=== PATIENT | female | born 1980 | race Caucasian/White ===

== ENCOUNTER → 2017-02-18 | Outpatient (CLI) | payer OTHER ==
--- NOTE | 2017-02-18 13:03 | MM ---
Reason for exam: screening (asymptomatic). Baseline mammogram. History: Patient history of other cancer. Physical Findings: Nurse did not find any significant physical abnormalities on exam. MG Screening Mammo w CAD Bilateral CC and MLO view(s) were taken. The breast tissue is heterogeneously dense. This may lower the sensitivity of mammography. There is no discrete abnormality. These results were verbally communicated with the patient and result sheet given to the patient on 02/18/17. ASSESSMENT: Negative, BI-RAD 1 RECOMMENDATION: Routine screening mammogram of both breasts at age 42. (unless clinical indication to start sooner)
== END | disposition home or self-care (01) ==
LOC: RADMAMWWP 10:42
PROVIDERS: ATTEND Obstetrics & Gynecology
DX: Z12.31 Encounter for screening mammogram for malignant neoplasm of breast (principal)

== ENCOUNTER → 2017-07-30 | Outpatient (CLI) | payer OTHER ==
--- NOTE | 2017-07-30 09:47 | US ---
EXAMINATION TYPE: US thyroid st tissue head/neck DATE OF EXAM: 07/30/2017 COMPARISON: US CLINICAL HISTORY: E04.2 Nontoxic multinodular goiter. Pt states F/U, no complaints at this time GLAND SIZE: Right Lobe: Surgically absent Left Lobe: 4.8 x 0.8 x 1.5 cm Overall Parenchyma: homogeneous Isthmus Thickness: 0.2 cm Bilateral neck scanned, no evidence of lymphadenopathy. Normal left thyroid, unchanged from previous IMPRESSION: 1. Surgical absence of the right thyroid with no residual sonographic tissue. 2. Unremarkable left lobe of the thyroid and thyroid isthmus, unchanged from the prior. 3. No visualized adenopathy.
== END | disposition home or self-care (01) ==
LOC: RADUSWWP 08:45
PROVIDERS: ATTEND Internal Medicine Endocrinology, Diabetes & Metabolism
DX: E04.2 Nontoxic multinodular goiter (principal); Z90.89 Acquired absence of other organs
CPT/HCPCS: 76536

== ENCOUNTER → 2017-09-03 | Outpatient (CLI) | payer OTHER | END | disposition home or self-care (01) | LOC: LABWHC1 12:47 | PROVIDERS: ATTEND Internal Medicine Endocrinology, Diabetes & Metabolism | DX: E03.8 Other specified hypothyroidism (principal); E55.9 Vitamin D deficiency, unspecified | CPT/HCPCS: 36415; 82306; 84439; 84443 ==

== ENCOUNTER 2018-05-02 19:58 | Emergency (ER) | payer OTHER ==
[2018-05-02] MEDS ORDERED: SODIUM CHLORIDE 0.9% 1,000 ML IV STA (20:02)
--- NOTE | 2018-05-02 20:06 | ED ---
Syncope HPI - General Stated Complaint: Syncope Time Seen by Provider: 05/02/18 20:00 Source: patient, EMS, RN notes reviewed Mode of arrival: EMS - History of Present Illness Initial Comments: This is a 37-year-old female who states she was standing for quite a period of time when she passed out. She felt lightheaded and dizzy. Had a glucose of 78 initially. She started feeling better but then had a second episode about 5 minutes later. She apparently was out from the original episode about 1 minute. She did not pass out on the second episode. No palpitations fevers chills nausea vomiting sweats she does have a history of heart or thyroid being removed he does not recall which side. She had an episode similar to this about 10 years ago. She states she has eaten and drank fluids jo JOLLY Complaint: loss of consciousness - Related Data Home Medications Medication Instructions Recorded Confirmed Citalopram Hydrobromide [CeleXA] 1 tab PO DAILY 05/02/18 05/02/18 Levothyroxine Sodium [Synthroid] 1 tab PO DAILY 05/02/18 05/02/18 Allergies Allergy/AdvReac Type Severity Reaction Status Date / Time No Known Allergies Allergy Verified 05/02/18 20:03 Review of Systems ROS Statement: Those systems with pertinent positive or pertinent negative responses have been documented in the HPI. ROS Other: All systems not noted in ROS Statement are negative. General Exam - General Exam Comments Initial Comments: This a well-developed well-nourished awake alert oriented 3 female General appearance: alert, in no apparent distress Head exam: Present: atraumatic, normocephalic, normal inspection Eye exam: Present: normal appearance, PERRL, EOMI. Absent: scleral icterus, conjunctival injection, periorbital swelling ENT exam: Present: mucous membranes dry Neck exam: Present: normal inspection. Absent: tenderness, meningismus, lymphadenopathy Respiratory exam: Present: normal lung sounds bilaterally. Absent: respiratory distress, wheezes, rales, rhonchi, stridor Cardiovascular Exam: Present: regular rate, normal rhythm, normal heart sounds. Absent: systolic murmur, diastolic murmur, rubs, gallop, clicks GI/Abdominal exam: Present: soft, normal bowel sounds. Absent: distended, tenderness, guarding, rebound, rigid Extremities exam: Present: normal inspection, full ROM, normal capillary refill. Absent: tenderness, pedal edema, joint swelling, calf tenderness Back exam: Present: normal inspection Neurological exam: Present: alert, oriented X3, CN II-XII intact Psychiatric exam: Present: normal affect, normal mood Skin exam: Present: warm, dry, intact, normal color. Absent: rash Course Vital Signs 05/02/18 20:06 Temperature 98.3 F Pulse Rate 70 Respiratory 16 Rate Blood Pressure 105/63 O2 Sat by Pulse 100 Oximetry EKG Findings - EKG Results: EKG: interpreted by MISTY, sinus rhythm (Sinus rhythm a 65. Interval 150 QRS duration 90 QT since QTC of 426/443 nonspecific inferior changes) Medical Decision Making - Medical Decision Making The patient has been awake and alert with no distress since arrival. She is a multiple times in the emergency department without difficulty. Patient will be discharged the presentation is consistent with a vasovagal episode. - Lab Data Result diagrams: 05/02/18 20:05 05/02/18 20:05 Lab Results 05/02/18 05/02/18 05/02/18 Range/Units 20:05 20:05 20:05 WBC 9.8 (3.8-10.6) k/uL RBC 3.98 (3.80-5.40) m/uL Hgb 11.1 L (11.4-16.0) gm/dL Hct 34.0 (34.0-46.0) % MCV 85.5 (80.0-100.0) fL MCH 27.8 (25.0-35.0) pg MCHC 32.5 (31.0-37.0) g/dL RDW 14.5 (11.5-15.5) % Plt Count 266 (150-450) k/uL Neutrophils % 78 % Lymphocytes % 16 % Monocytes % 5 % Eosinophils % 1 % Basophils % 0 % Neutrophils # 7.6 (1.3-7.7) k/uL Lymphocytes # 1.5 (1.0-4.8) k/uL Monocytes # 0.5 (0-1.0) k/uL Eosinophils # 0.1 (0-0.7) k/uL Basophils # 0.0 (0-0.2) k/uL PT (9.0-12.0) sec INR (<1.2) APTT (22.0-30.0) sec D-Dimer (<0.60) mg/L FEU Sodium 140 (137-145) mmol/L Potassium 4.0 (3.5-5.1) mmol/L Chloride 108 H (98-107) mmol/L Carbon Dioxide 22 (22-30) mmol/L Anion Gap 10 mmol/L BUN 13 (7-17) mg/dL Creatinine 0.70 (0.52-1.04) mg/dL Est GFR (CKD-EPI)AfAm >90 (>60 ml/min/1.73 sqM) Est GFR (CKD-EPI)NonAf >90 (>60 ml/min/1.73 sqM) Glucose 90 (74-99) mg/dL POC Glucose (mg/dL) (75-99) mg/dL POC Glu Power Plant Technician ID Calcium 8.2 L (8.4-10.2) mg/dL Magnesium 1.9 (1.6-2.3) mg/dL Total Bilirubin <0.1 L (0.2-1.3) mg/dL AST 23 (14-36) U/L ALT 33 (9-52) U/L Alkaline Phosphatase 71 (38-126) U/L Total Creatine Kinase 57 (30-135) U/L CK-MB (CK-2) <0.2 (0.0-2.4) ng/mL CK-MB (CK-2) Rel Index Troponin I <0.012 (0.000-0.034) ng/mL Total Protein 5.8 L (6.3-8.2) g/dL Albumin 3.4 L (3.5-5.0) g/dL Urine Color Urine Appearance (Clear) Urine pH (5.0-8.0) Ur Specific Carey (1.001-1.035) Urine Protein (Negative) Urine Glucose (UA) (Negative) Urine Ketones (Negative) Urine Blood (Negative) Urine Nitrite (Negative) Urine Bilirubin (Negative) Urine Urobilinogen (<2.0) mg/dL Ur Leukocyte Esterase (Negative) Urine RBC (0-5) /hpf Urine WBC (0-5) /hpf Ur Squamous Epith Cells (0-4) /hpf Urine Bacteria (None) /hpf Urine Mucus (None) /hpf 05/02/18 05/02/18 05/02/18 Range/Units 20:05 20:09 20:31 WBC (3.8-10.6) k/uL RBC (3.80-5.40) m/uL Hgb (11.4-16.0) gm/dL Hct (34.0-46.0) % MCV (80.0-100.0) fL MCH (25.0-35.0) pg MCHC (31.0-37.0) g/dL RDW (11.5-15.5) % Plt Count (150-450) k/uL Neutrophils % % Lymphocytes % % Monocytes % % Eosinophils % % Basophils % % Neutrophils # (1.3-7.7) k/uL Lymphocytes # (1.0-4.8) k/uL Monocytes # (0-1.0) k/uL Eosinophils # (0-0.7) k/uL Basophils # (0-0.2) k/uL PT 10.9 (9.0-12.0) sec INR 1.1 (<1.2) APTT 20.9 L (22.0-30.0) sec D-Dimer 0.29 (<0.60) mg/L FEU Sodium (137-145) mmol/L Potassium (3.5-5.1) mmol/L Chloride (98-107) mmol/L Carbon Dioxide (22-30) mmol/L Anion Gap mmol/L BUN (7-17) mg/dL Creatinine (0.52-1.04) mg/dL Est GFR (CKD-EPI)AfAm (>60 ml/min/1.73 sqM) Est GFR (CKD-EPI)NonAf (>60 ml/min/1.73 sqM) Glucose (74-99) mg/dL POC Glucose (mg/dL) 92 (75-99) mg/dL POC Glu Power Plant Technician ID [place], Any Calcium (8.4-10.2) mg/dL Magnesium (1.6-2.3) mg/dL Total Bilirubin (0.2-1.3) mg/dL AST (14-36) U/L ALT (9-52) U/L Alkaline Phosphatase (38-126) U/L Total Creatine Kinase (30-135) U/L CK-MB (CK-2) (0.0-2.4) ng/mL CK-MB (CK-2) Rel Index Troponin I (0.000-0.034) ng/mL Total Protein (6.3-8.2) g/dL Albumin (3.5-5.0) g/dL Urine Color Yellow Urine Appearance Clear (Clear) Urine pH 6.0 (5.0-8.0) Ur Specific Carey 1.010 (1.001-1.035) Urine Protein Negative (Negative) Urine Glucose (UA) Negative (Negative) Urine Ketones Negative (Negative) Urine Blood Trace H (Negative) Urine Nitrite Negative (Negative) Urine Bilirubin Negative (Negative) Urine Urobilinogen <2.0 (<2.0) mg/dL Ur Leukocyte Esterase Negative (Negative) Urine RBC 1 (0-5) /hpf Urine WBC 2 (0-5) /hpf Ur Squamous Epith Cells 3 (0-4) /hpf Urine Bacteria Rare H (None) /hpf Urine Mucus Few H (None) /hpf - Radiology Data Radiology results: report reviewed (I did review the imaging and reports no acute findings.), image reviewed Disposition Clinical Impression: Vasovagal syncope Disposition: HOME SELF-CARE Condition: Good Instructions: Syncope (ED) Is patient prescribed a controlled substance at d/c from ED?: No Referrals: Zelda Dutton MD [Primary Care Provider] - 1-2 days
[2018-05-02 20:11] LABS: Glucose,Whole Blood 92 mg/dL (75-99)
[2018-05-02 20:16] LABS: Basophils % (A) 0 %; Eosinophils # (A) 0.1 k/uL (0-0.7); Eosinophils % (A) 1 %; HGB 11.1 gm/dL (11.4-16.0); Lymphocytes # (A) 1.5 k/uL (1.0-4.8); Lymphocytes % (A) 16 %; MCH 27.8 pg (25.0-35.0); MCHC 32.5 g/dL (31.0-37.0); MCV 85.5 fL (80.0-100.0); Mean Platelet Volume 7.9; Monocytes # (A) 0.5 k/uL (0-1.0); Monocytes % (A) 5 %; Neutrophils # (A) 7.6 k/uL (1.3-7.7); Neutrophils % (A) 78 %; Platelet Count 266 k/uL (150-450); RBC 3.98 m/uL (3.80-5.40); RDW 14.5 % (11.5-15.5); WBC 9.8 k/uL (3.8-10.6)
--- NOTE | 2018-05-02 20:22 | XR ---
EXAMINATION: XR chest 2V DATE AND TIME: 05/02/2018 8:17 PM ORDERING PROVIDER: Abrahan Price MD CLINICAL INDICATION: syncope TECHNIQUE: PA and lateral COMPARISON: 12/16/2012 DESCRIPTION: The lungs are clear. The pleural spaces are negative. The cardiac silhouette is not enlarged. The mediastinal and pleural silhouettes are unremarkable. The skeletal structures are intact without focal findings. The soft tissues are unremarkable. IMPRESSION: NO ACUTE PROCESS.
[2018-05-02 20:36] LABS: D-Dimer 0.29 mg/L FEU (<0.60); INR 1.1 (<1.2); Partial Thromboplastin Time 20.9 sec (22.0-30.0); Prothrombin Time 10.9 sec (9.0-12.0)
[2018-05-02 20:43] LABS: ALT 33 U/L (9-52); AST 23 U/L (14-36); Albumin 3.4 g/dL (3.5-5.0); Alkaline Phosphatase 71 U/L (38-126); Anion Gap 10 mmol/L; Blood Urea Nitrogen 13 mg/dL (7-17); Calcium 8.2 mg/dL (8.4-10.2); Carbon Dioxide 22 mmol/L (22-30); Chloride 108 mmol/L (98-107); Glucose 90 mg/dL (74-99); Magnesium 1.9 mg/dL (1.6-2.3); Sodium 140 mmol/L (137-145); Total Bilirubin <0.1 mg/dL (0.2-1.3); Total Protein 5.8 g/dL (6.3-8.2)
[2018-05-02 20:46] LABS: Creatine Kinase 57 U/L (30-135)
[2018-05-02 20:48] LABS: Appearance,Urine Clear (Clear); Bacteria,Urine Rare /hpf; Bilirubin,Urine Negative (Negative); Blood,Urine Trace (Negative); Color,Urine Yellow; Glucose,Urine (UA) Negative (Negative); Ketones,Urine Negative (Negative); Leukocyte Esterase,Urine Negative (Negative); Mucus,Urine Few /hpf; Nitrite,Urine Negative (Negative); Protein,Urine Negative (Negative); RBC,Urine 1 /hpf (0-5); Squamous Epithelial Cell,Urine 3 /hpf (0-4); Urobilinogen,Urine <2.0 mg/dL (<2.0); WBC,Urine 2 /hpf (0-5)
[2018-05-02 20:59] LABS: Creatine Kinase MB <0.2 ng/mL (0.0-2.4); Troponin I <0.012 ng/mL (0.000-0.034)
[2018-05-02 22:09] VITALS: BP 106/67; PULSE 87; RESP 18; TEMP 97.4
== END 2018-05-02 22:07 | disposition home or self-care (01) ==
LOC: EC 19:58
DX: R55 Syncope and collapse (principal); Z79.899 Other long term (current) drug therapy
CPT/HCPCS: 36415; 71046; 80053; 81001; 82550; 82553; 83735; 84484; 85025; 85379; 85610; 85730; 93005; 96360; 96361; 99285

== ENCOUNTER → 2018-05-11 | Outpatient (CLI) | payer OTHER ==
[2018-05-11 10:33] LABS: Basophils % (A) 0 %; Eosinophils # (A) 0.1 k/uL (0-0.7); Eosinophils % (A) 2 %; HCT 38.7 % (34.0-46.0); HGB 12.8 gm/dL (11.4-16.0); Lymphocytes # (A) 1.7 k/uL (1.0-4.8); Lymphocytes % (A) 25 %; MCH 28.4 pg (25.0-35.0); MCHC 33.2 g/dL (31.0-37.0); MCV 85.5 fL (80.0-100.0); Mean Platelet Volume 8.3; Monocytes # (A) 0.4 k/uL (0-1.0); Monocytes % (A) 5 %; Neutrophils # (A) 4.4 k/uL (1.3-7.7); Neutrophils % (A) 65 %; Platelet Count 296 k/uL (150-450); RBC 4.53 m/uL (3.80-5.40); RDW 14.2 % (11.5-15.5); WBC 6.7 k/uL (3.8-10.6)
== END | disposition home or self-care (01) ==
LOC: LABPAT 07:43
PROVIDERS: ATTEND Obstetrics & Gynecology
DX: Z01.812 Encounter for preprocedural laboratory examination (principal); N92.0 Excessive and frequent menstruation with regular cycle
CPT/HCPCS: 36415; 85025

== ENCOUNTER 2018-05-12 07:21 | Day surgery (SDC) | payer OTHER ==
[2018-05-11 08:37] VITALS: BMI 20.9
--- NOTE | 2018-05-11 09:03 | HP ---
HISTORY AND PHYSICAL This is a 37-year-old white female, 2, para 2-0-0-2, who presents with a history of menorrhagia and is requesting NovaSure endometrial ablation. Menses are quite long, occurring every 28 to 30 days, but lasting for a full 7 days, heavy with clots. She has had a tubal ligation. REVIEW OF SYSTEMS: Review of systems is otherwise negative. PAST MEDICAL HISTORY: Past medical history is significant for asthma. PAST SURGICAL HISTORY: x2, partial thyroidectomy, tubal ligation. CURRENT MEDICATIONS: 1. Levothyroxine 100 mcg once daily. 2. Vitamin C daily. 3. Zyrtec 10 mg pills daily as needed. ALLERGIES: None known. FAMILY HISTORY: Significant for diabetes in her paternal grandfather. REPRODUCTIVE HISTORY: Reproductive history is significant for 2 male deliveries, both via , second one including tubal ligation. SOCIAL HISTORY: Social history is significant for tobacco, smoking daily. The patient is employed at the [employer]. She is single. PHYSICAL EXAMINATION: On exam, this is a pleasant white female, 5 feet, 5.25 inches, 134 pounds, BMI 22, blood pressure 108/72, afebrile. The general physical exam is within normal limits. HEENT reveals no thyromegaly, no cervical lymphadenopathy. Chest is clear to auscultation in all enriquez anteriorly and posteriorly. Chest is otherwise negative. Cardiac exam reveals regular rate and rhythm with no murmur, click, or rub. Breasts are bilaterally symmetric with no skin dimpling, nipple discharge, axillary adenopathy or discernible lesions or masses. Abdomen is soft, nontender, active bowel sounds, no organomegaly. Extremities revealed no edema, good peripheral pulses, good range of motion. On pelvic exam, cervix appears multiparous, Pap smear is up to date and within normal limits. Uterus is small, anteverted, anteflexed, smooth, mobile. Adnexa are negative bilaterally. Skin exam reveals otherwise no rashes, no lesions. No areas of discoloration. Mental status is oriented x3, intact judgment and insight, normal mood and appropriate affect. IMPRESSION: Menorrhagia and dysmenorrhea, status post endometrial biopsy with negative findings, wishing NovaSure endometrial ablation. PLAN: I have reviewed the risks, benefits, and alternatives of this outpatient procedure. The patient understands the risks of bleeding, infection, perforation or damage to bowel, bladder, ureters, blood vessels or indeed any organs. She understands the risks of anesthesia to include aspiration, nerve damage, or even . All questions answered. The informational pamphlet on this procedure has been given to the patient and she has reviewed this in detail. MMODL / IJN: [id number] /
[~2018-05-12 07:21] MED LIST: HYDROmorphone 0.5 MG/0.5 ML SYRINGE IVP PRN; ONDANSETRON 4 MG/2 ML VIAL IVP PRN; Pre Op ABX Message 1 EACH MISC MISCELLANE ONE; fentaNYL (PF) 50 MCG/ML 2 ML AMP IV PRN
[2018-05-12 07:40] VITALS: RESP 16
[2018-05-12] MEDS ORDERED: LIDOCAINE 1% 20 ML VIAL (10MG/ML) FOR IV START INTRADERMA ONE (08:12)
[2018-05-12] MEDS ORDERED: DEXAMETHASONE SOD PHOSPHATE 10 MG/ML 1 ML VIAL IV ONE (08:16)
[2018-05-12] MEDS ORDERED: ONDANSETRON 4 MG/2 ML VIAL IVP ONE (08:16)
[2018-05-12] MEDS: LACTATED RINGERS 1,000 ML IV SCH ×2 (08:17→09:16)
[2018-05-12] MEDS ORDERED: LIDOCAINE 1% INJ 10MG/ML (20 ML MDV) ONE (09:19)
[2018-05-12] MEDS ORDERED: KETOROLAC 30 MG/ML 1 ML VIAL ONE (09:19)
[2018-05-12] MEDS ORDERED: fentaNYL (PF) 50 MCG/ML 2 ML AMP ONE (09:19)
[2018-05-12] MEDS ORDERED: MIDAZOLAM 2 MG/2 ML VIAL ONE (09:19)
[2018-05-12] MEDS ORDERED: PROPOFOL 10 MG/ML 20 ML VIAL IV ONE (09:19)
--- NOTE | 2018-05-12 09:45 | P.OP ---
Date of Procedure: 05/12/18 Preoperative Diagnosis: Menorrhagia Postoperative Diagnosis: Same Procedure(s) Performed: Hysteroscopy, NovaSure ablation Anesthesia: MARCIN Surgeon: Mercedes Leavitt Farm Reporter #1: Stated None Estimated Blood Loss (ml): 2 IV fluids (ml): 400 Urine output (ml): 200 Pathology: none sent Condition: stable Disposition: PACU Description of Procedure: Patient is brought to the [facility] and suite where a general anesthetic is administered without difficulty. She's placed in the dorsal lithotomy position. The cervix, vagina, perineal areas are all prepped and draped in the usual sterile fashion. The appropriate timeout is performed to assure proper patient and procedural identification. Urine hCG is negative. Antibiotics are not deemed appropriate. The bladder is drained for approximately 200 mL of clear yellow urine. Weighted speculum was placed into the vagina. Anterior lip of the cervix is grasped with a double-tooth tenaculum. Examination under anesthesia reveals a small mobile anteverted uterus, negative adnexa bilaterally. Uterus sounds to a depth of 10 cm. The cervix is then gently and systematically dilated using Hanks dilators. The hysteroscope was placed and fluid is infused. The cavity is distended and inspected. No obvious polyps, fibroids, defects, or anomalies are appreciated. Hysteroscope was removed. The NovaSure wand is then placed into the cavity and seated properly. The uterine length of 6.5 cm, width of 4.3 cm is calibrated. Machine is properly enabled. For 61 seconds with a power of 154 W. the procedure is carried out. When it is completed, the wand is collapsed and removed. Hysteroscope was then placed and the cavity is noted to be uniformly blanched. Double-tooth tenaculum was removed. Cervix is clean and dry. All sponge needle and enhancement counts are correct at the end of the procedure. Patient is brought back to the recovery room in stable condition with blood pressure 90/44, pulse 54, 100% O2 saturation. Toradol is given prior to leaving the operative suite. Patient will follow-up with me in the office in 2 weeks.
[2018-05-12 09:59] VITALS: TEMP 97.7
[2018-05-12 11:53] VITALS: BP 103/66; PULSE 55
== END 2018-05-12 12:00 | disposition home or self-care (01) ==
LOC: OR 07:21
PROVIDERS: ATTEND Obstetrics & Gynecology
DX: N92.0 Excessive and frequent menstruation with regular cycle (principal); N94.6 Dysmenorrhea, unspecified; J45.909 Unspecified asthma, uncomplicated; E89.0 Postprocedural hypothyroidism; F17.200 Nicotine dependence, unspecified, uncomplicated; Z79.890 Hormone replacement therapy; Z79.899 Other long term (current) drug therapy; Z98.51 Tubal ligation status; Z83.3 Family history of diabetes mellitus
CPT/HCPCS: 58563; J2250; J1100; J2405; J2001; J3010; J1885; J2704

== ENCOUNTER → 2019-07-22 | Outpatient (CLI) | payer OTHER ==
--- NOTE | 2019-07-22 17:10 | XR ---
Right hand HISTORY: Lump over third metacarpal phalangeal joint, pain 3 views of the right hand Bone mineralization, joint spaces and alignment are maintained. No radiopaque foreign body. There is soft tissue swelling. IMPRESSION: Soft tissue swelling.
== END | disposition home or self-care (01) ==
LOC: RADXRYALE 15:09
PROVIDERS: ATTEND Internal Medicine
DX: M79.89 Other specified soft tissue disorders (principal)

== ENCOUNTER → 2021-09-19 | Outpatient (CLI) | payer OTHER ==
--- NOTE | 2021-09-21 12:06 | MM ---
Reason for exam: screening (asymptomatic). Last mammogram was performed 4 years and 7 months ago. History: Patient history of other cancer. Physical Findings: A clinical breast exam by your physician is recommended on an annual basis and results should be correlated with mammographic findings. MG 3D Screening Mammo W/Cad Bilateral CC and MLO view(s) were taken. Prior study comparison: February 18, 2017, bilateral MG screening mammo w CAD. There are scattered fibroglandular densities. No significant changes when compared with prior studies. ASSESSMENT: Negative, BI-RAD 1 RECOMMENDATION: Routine screening mammogram of both breasts at age 42.
== END | disposition home or self-care (01) ==
LOC: RADMAMWWP 16:34
PROVIDERS: ATTEND Obstetrics & Gynecology
DX: Z12.31 Encounter for screening mammogram for malignant neoplasm of breast (principal)
CPT/HCPCS: 77063; 77067

== ENCOUNTER → 2022-09-30 | Outpatient (CLI) | payer OTHER ==
--- NOTE | 2022-10-01 10:44 | MM ---
Reason for Exam: Screening (asymptomatic). Last screening mammogram was performed 12 month(s) ago. Patient History: Menarche at age 16. First Full-Term at age 29. Patient used Hormonal Contraceptives for 10 years. Last menstrual period: Risk Values: Ally 5 year model risk: 0.5%. NCI Lifetime model risk: 10.2%. Prior Study Comparison: 02/18/2017 Bilateral Screening Mammogram, [facility]. 09/19/2021 Bilateral Screening Mammogram, [facility]. Tissue Density: There are scattered fibroglandular densities. Findings: Analyzed By CAD. There is no suspicious group of microcalcifications or new suspicious mass in either breast. Overall Assessment: Negative, BI-RAD 1 Management: Screening Mammogram of both breasts in 1 year. A clinical breast exam by your physician is recommended on an annual basis and results should be correlated with mammographic findings. Electronically signed and approved by: Desmond Ronquillo M.D.
== END | disposition home or self-care (01) ==
LOC: RADMAMWWP 13:57
PROVIDERS: ATTEND Obstetrics & Gynecology
DX: Z12.31 Encounter for screening mammogram for malignant neoplasm of breast (principal)
CPT/HCPCS: 77067

== ENCOUNTER → 2024-06-01 | Outpatient (CLI) | payer OTHER ==
--- NOTE | 2024-06-04 07:45 | MM ---
Reason for Exam: Screening (asymptomatic). Last mammogram was performed 1 year(s) and 9 month(s) ago. Patient History: Menarche at age 16. First Full-Term at age 29. Patient used Hormonal Contraceptives for 10 years. Risk Values: Ally 5 year model risk: 0.6%. NCI Lifetime model risk: 10.1%. Prior Study Comparison: 02/18/2017 Bilateral Screening Mammogram, [facility]. 09/19/2021 Bilateral Screening Mammogram, [facility]. 09/30/2022 Bilateral MG screening mammo w CAD, [facility]. Tissue Density: The breasts are heterogeneously dense, which may obscure small masses. Findings: Analyzed By CAD. There is no suspicious group of microcalcifications or new suspicious mass in either breast. Benign calcifications right breast. Overall Assessment: Benign, BI-RAD 2 Management: Screening Mammogram of both breasts in 1 year. . Patient should continue monthly self-breast exams. A clinical breast exam by your physician is recommended on an annual basis. This exam should not preclude additional follow-up of suspicious palpable abnormalities. Note on Ally scores and lifetime risk: 1. A Ally score greater than 3% is considered moderate risk. If this is the case, consider specialist referral to assess eligibility for a risk reducing agent. 2. If overall lifetime risk for the development of breast cancer is 20% or higher, the patient may qualify for future screening with alternating mammogram and breast MRI. Electronically signed and approved by: Lio Conde M.D. Radiologis
== END | disposition home or self-care (01) ==
LOC: RADMAMWWP 06:59
PROVIDERS: ATTEND Obstetrics & Gynecology
DX: Z12.31 Encounter for screening mammogram for malignant neoplasm of breast (principal)
CPT/HCPCS: 77063; 77067

== ENCOUNTER → 2024-09-01 | Outpatient (CLI) | payer OTHER ==
[2024-09-01 11:03] LABS: Basophils # (A) 0.05 X 10*3/uL (0.00-0.10); Basophils % (A) 0.5 %; Eosinophils # (A) 0.28 X 10*3/uL (0.04-0.35); Eosinophils % (A) 2.7 %; HGB 13.7 g/dL (12.0-15.0); Lymphocytes # (A) 2.53 X 10*3/uL (0.90-5.00); Lymphocytes % (A) 24.6 %; MCH 31.1 pg (27.0-32.0); MCHC 33.4 g/dL (32.0-37.0); MCV 93.2 FL (80.0-97.0); Monocytes # (A) 0.73 X 10*3/uL (0.20-1.00); Monocytes % (A) 7.1 %; NRBC Per 100 WBC 0 X 10*3/uL (0.00-0.01); Neutrophils # (A) 6.66 X 10*3/uL (1.80-7.70); Neutrophils % (A) 64.8 %; Platelet Count 346 X 10*3/uL (140-440); RDW 12.8 % (11.5-14.5); WBC 10.28 X 10*3/uL (4.50-10.00)
[2024-09-01 11:32] LABS: ALT 25 U/L (8-44); AST 20 U/L (13-35); Albumin/Globulin Ratio 1.74 Ratio (1.60-3.17); Alkaline Phosphatase 117 U/L (41-126); BUN/Creat Ratio 17.29 Ratio (12.00-20.00); Blood Urea Nitrogen 12.1 mg/dL (9.0-27.0); Calcium 8.8 mg/dL (8.7-10.3); Carbon Dioxide 25.4 mmol/L (21.6-31.8); Chloride 106 mmol/L (96-109); Chol/HDL Ratio 4.13 Ratio; Globulin 2.3 g/dL (1.6-3.3); Glucose 88 mg/dL (70-110); LDL Cholesterol,Calculated 88.6 mg/dL (0.0-131.0); Potassium 4.7 mmol/L (3.5-5.5); Sodium 139 mmol/L (135-145); Total Bilirubin 0.3 mg/dL (0.3-1.2); Total Protein 6.3 g/dL (6.2-8.2)
== END | disposition home or self-care (01) ==
LOC: LABWHC1 07:15
PROVIDERS: ATTEND Internal Medicine
DX: E03.9 Hypothyroidism, unspecified (principal); Z13.220 Encounter for screening for lipoid disorders; R53.83 Other fatigue
CPT/HCPCS: 36415; 80053; 80061; 82306; 84443; 85025

== ENCOUNTER → 2025-03-16 | Outpatient (CLI) | payer OTHER ==
--- NOTE | 2025-03-16 08:27 | MR ---
INDICATION: Patient age:Female; 44 years old; Reason for study: R55 SYNCOPE AND COLLAPSE; [facility]. COMPARISON: None. TECHNIQUE: Multi planar, multi sequence imaging was performed through the brain. The patient was then given 6 cc of Gadobutrol intravenously and multi planar, T1 fat-saturation images were obtained. FINDINGS: The tejeda-white junctions, ventricular system, basal cisterns appear unremarkable. Age-appropriate cer ebral parenchymal volume. Diffusion-weighted imaging shows no evidence of restricted diffusion to sug gest acute/subacute infarct. Intracranial arterial flow voids are maintained. Midline structures show no abnormality. Couple of foci of high T2/FLAIR signal intensity are seen within the subcortical whi te matter of the left frontoparietal region. This is within the posterior left frontal lobe subcortic al white matter measuring up to 4.5 mm (series 601, image 20). The susceptibility weighted images do not reveal any evidence for micro-hemorrhage. After administration of gadolinium, no abnormal enhance ment is seen. The bone marrow signal is within normal limits. The globes are unremarkable. Minimal mucosal thicke mendez in the inferior maxillary sinus and bilateral ethmoid sinuses. IMPRESSION: 1. No evidence of intracranial mass, acute/subacute infarct, or abnormal enhancement. 2. Minimal nonspecific white matter changes. Etiologies include demyelinating disease, small vessel i schemic disease, chronic migraines, and other etiologies. [facility], , 03/16/2025 8:24 AM
== END | disposition home or self-care (01) ==
LOC: RADMRIMAIN 06:44
PROVIDERS: ATTEND Psychiatry & Neurology Neurology
DX: R90.82 White matter disease, unspecified (principal); I67.82 Cerebral ischemia; R55 Syncope and collapse
CPT/HCPCS: 70553; A9585